=== PATIENT | male | born 1970 | race Caucasian/White ===

== ENCOUNTER 2017-11-15 08:57 | Emergency (ER) | payer SELFPAY ==
[2017-11-15] VITALS (58 sets, daily range): BP systolic 165–247; BP diastolic 99–207; PULSE 74–110; RESP 0–28; TEMP 36.6–37; O2SAT 95–100
--- NOTE | 2017-11-15 09:37 | DI.RPTCT_ITS ---
SYMPTOM/DIAGNOSIS: SEVERE HEADACHE AND SEVERE HTN (200's) NONCONTRAST HEAD CT: There are no prior comparison exams. No intracranial hemorrhage, mass or infarct is seen. There is no significant atrophy. The ventricles are normal in size. There is no evidence of skull fracture or sinus opacification. IMPRESSION: Negative head CT.
--- NOTE | 2017-11-15 09:37 | DI.RPTCT_ITS ---
SYMPTOM/DIAGNOSIS: SEVERE HEADACHE AND SEVERE HTN (200's) CT ANGIOGRAPHY HEAD AND NECK: CT angiography was performed with multi slice acquisition and multi planar and 3D reconstruction. There is mild plaque in both common carotid bulbs without significant stenosis. The vessels are otherwise normal in appearance. There is no evidence of dissection. A focal area of tortuosity is seen in the distal right internal carotid artery. [place] of [place] vasculature appears normal. There are mild degenerative disc changes at C3-4 and C6-7. The orbits are unremarkable. The nasal septum is deviated toward the right. There is no significant sinus disease. The thyroid, submandibular and parotid glands are unremarkable. IMPRESSION: Mild plaque in both common carotid arteries. No significant stenosis.
--- NOTE | 2017-11-15 09:50 | DI.RPTCT_ITS ---
SYMPTOM/DIAGNOSIS: FREQUENT VOMITING X 4 DAYS. EPIGASTRIC ABD PAIN ON PALPATION. CT ABDOMEN AND PELVIS: There are no prior comparison exams. Images were performed from the lung bases through the ischial tuberosities after IV and oral contrast. The exam was performed following the CTA of the head and neck, and contrast is seen within the renal collecting systems and bladder. The prostate appears mildly enlarged. There is marked thickening of the bladder wall which is greatest inferiorly and posteriorly. Urinary bladder appears distended. There is no evidence of hydronephrosis. No renal calculi are seen. The heart size is normal. The lung bases are clear. Liver, gallbladder, spleen, pancreas and adrenals appear normal. There is a small amount of contrast in the stomach. The stomach is not well evaluated. There is no bowel dilatation. The appendix appears normal. Stool is seen throughout the colon. The aorta is normal in diameter. No bony abnormalities are seen. IMPRESSION: Marked thickening of the wall of the bladder at the base, adjacent to the prostate. The prostate shows calcification and is mildly enlarged.
[2017-11-15] MEDS: Acetaminophen 500 MG TAB 1000 MG PO (09:52)
[2017-11-15] MEDS: Normal Saline 1,000 ML 1000 ML IV ×3 (09:55→11:54)
[2017-11-15] MEDS: Dexamethasone 10 MG/ML VIAL IVP (10:00)
[2017-11-15] MEDS: diphenhydrAMINE 50 MG/ML VIAL 25 MG IVP (10:01)
[2017-11-15] MEDS: Metoclopramide 10 MG/2 ML VIAL IVP (10:03)
[2017-11-15 10:17] LABS: Abs Immature Grans 0.06 k/cumm (0.0-0.09); Absolute Lymphocyte Count 3.19 k/cumm (1.2-3.4); Basophils % 0.2; HCT 53.4 % (40.0-50.0); Immature Grans % 0.3; Lymphocytes % 17.5; Mean Corpuscular Hemoglobin 31.1 pg (27.0-33.0); Mean Corpuscular Volume 86.4 fL (80-95); Mean Platelet Volume 10.9 fL (8.0-11.0); Monocytes % 6.7; Neutrophils % 75.3; Platelet Count 172 x1000/uL (130-400); RBC 6.18 m/cumm (4.50-6.00); RBC Distribution Width 14.4 % (11.8-14.1); White Blood Cell Count 18.23 k/cumm (4.4-10.8)
[2017-11-15 10:25] LABS: Absolute Basophil Count 0.04 k/cumm (0.0-0.2); Absolute Monocyte Count 1.22 k/cumm (0.11-0.7); Absolute Neutrophil Count 13.73 k/cumm (1.2-6.7); Lipase 105 U/L (73-393)
[2017-11-15 10:27] LABS: HGB 19.2 g/dL (13.5-17.5)
[2017-11-15 10:33] LABS: ALT 21 U/L (12-78); AST 17 U/L (15-37); Albumin 4.8 g/dL (3.4-5.0); Alkaline Phosphatase 112 U/L (46-116); Anion Gap 11.9 mmol/L (3-11); BUN 51 mg/dL (7-18); Bilirubin, Total 1.2 mg/dL (0.2-1.0); CO2 27.1 mmol/L (21.0-32.0); CREATININE 2.39 mg/dL (0.70-1.30); Calcium 10.3 mg/dL (8.5-10.1); Chloride 92 mmol/L (98-107); Glucose 152 mg/dL (70-100); Potassium 3.5 mmol/L (3.5-5.1); Sodium 131 mmol/L (136-145); Total Protein 9.4 g/dL (6.4-8.2)
[2017-11-15 10:37] LABS: ETHANOL BLOOD < 3.0 mg/dL (<3)
[2017-11-15 10:38] LABS: Troponin I < 0.02 ng/mL (0.00-0.06)
[2017-11-15] MEDS: Labetalol 100 MG/20 ML VIAL 10 MG IVP ×2 (10:47→12:17)
[2017-11-15 10:58] LABS: C-Reactive Protein 0.05 mg/dL (0.0-0.3)
[2017-11-15 11:27] LABS: ESR 2 MM/HR (0-15)
[2017-11-15] MEDS: Omnipaque 350 MG/ML 100 ML BTL IJ (11:40)
[2017-11-15] MEDS: Omnipaque 350 MG/ML 50 ML BTL IJ (11:41)
[2017-11-15] MEDS: Breeza Beverage 473 ML BTL PO ×2 (11:41→11:42)
[2017-11-15] MEDS: Lidocaine 4% Cream 5 GM TUBE 1 GM TP (12:16)
[2017-11-15] MEDS: Ketorolac 30 MG/ML VIAL IM (12:18)
[2017-11-15] MEDS: hydrALAZINE 20 MG/ML VIAL 10 MG IVP (12:21)
--- NOTE | 2017-11-15 13:07 | ED.GENADUL ---
Disposition Clinical Impression: Headache, Hypertension, Medical non-compliance Disposition: HOME Condition: Good Instructions: Hypertension (ED), General Headache (ED) Additional Instructions: Please follow-up with your new primary care provider and your scheduled appointment on November 22 at 9:45 AM. This is with . Please take the medication as directed. Please drink 8-10 cups of water per day. Please take the blood pressure medication as directed. If you notice any significant lightheadedness or dizziness please hold on the medication. If you notice any worsening of your symptoms, or any new symptoms such as vomiting, diarrhea, fever, chills, shortness of breath, chest pain, numbness, weakness, or fainting , please return immediately to the emergency department for reevaluation. Please follow up with your primary care provider as soon as possible for reassessment and reevaluation. As always, it was a pleasure participating in your medical care today. Prescriptions: Labetalol [Normodyne] 100 mg PO BID #60 tab Ondansetron [Zofran] 4 mg PO Q8H #12 tab Referrals: Julio Cesar Saleh [Primary Care Provider] - Medical Decision Making - Lab Data Laboratory Tests 11/15/17 11/15/17 11/15/17 09:55 09:55 09:55 WBC 18.23 H RBC 6.18 H Hgb 19.2 H* Hct 53.4 H MCV 86.4 MCH 31.1 MCHC 36.0 RDW 14.4 H Plt Count 172 MPV 10.9 Immature Gran % 0.3 Neutrophils % 75.3 Lymphocytes % 17.5 Monocytes % 6.7 Eosinophils % 0.0 Basophils % 0.2 Absolute Neutrophils 13.73 H Absolute Lymphocytes 3.19 Absolute Monocytes 1.22 H Absolute Eosinophils 0.00 Absolute Basophils 0.04 ESR Sodium 131 L Potassium 3.5 Chloride 92 L Carbon Dioxide 27.1 Anion Gap 11.9 H BUN 51 H Creatinine 2.39 H Estimated GFR/1.73 m2 29.30 Glucose 152 H Calcium 10.3 H Total Bilirubin 1.2 H AST 17 ALT 21 Alkaline Phosphatase 112 Troponin I < 0.02 C-Reactive Protein Total Protein 9.4 H Albumin 4.8 Lipase 105 Ethyl Alcohol < 3.0 11/15/17 11/15/17 09:55 09:55 WBC RBC Hgb Hct MCV MCH MCHC RDW Plt Count MPV Immature Gran % Neutrophils % Lymphocytes % Monocytes % Eosinophils % Basophils % Absolute Neutrophils Absolute Lymphocytes Absolute Monocytes Absolute Eosinophils Absolute Basophils ESR 2 Sodium Potassium Chloride Carbon Dioxide Anion Gap BUN Creatinine Estimated GFR/1.73 m2 Glucose Calcium Total Bilirubin AST ALT Alkaline Phosphatase Troponin I C-Reactive Protein 0.05 Total Protein Albumin Lipase Ethyl Alcohol - Medical Decision Making This is a 46-year-old male medical history of hypertension that is not medically managed compared to noncompliance who presents today for evaluation of head pain. Patient states that the headache is severe, however similar in nature to his previous headaches. He denies any family history of polycystic kidney disease, Marfan syndrome, Hermelinda-Danlos syndrome, or intracranial aneurysms. Patient has no fever or chills, he shows no signs of meningitis on clinical exam. Because of the patient's notable hypertension, we will get a CT head and CT angiogram to evaluate for any acute intracranial process. We will give a migraine cocktail and reevaluate. We will attempt to control his blood pressure. The patient's nausea and vomiting has seemed to resolve this morning, however he does appear notably dehydrated. Without urinating for the last day and a half I am concerned for significant dehydration with a potential acute kidney injury. We will get a CT scan of the abdomen, rehydrate, reevaluate EKG 9: 45 Rate 100, intervals MO 116, QTc 480, QRS 96, sinus rhythm with a shortened MO. EKG demonstrates less than 1 mm elevation in V1 and V2 with normal J-point no tumors stoning. No significant depression in the contralateral leads. No significant T-wave inversions. No Q waves are present. Patient CT angiogram and CT head, as well as a CT abdomen shows no acute process. The radiologist, Dr. Trevino did call me back and states that there is no acute process, or evidence of aneurysm in the head or neck. CT the abdomen does show some marked thickening of the bladder but no other acute abnormality, obstruction, or signs of ileus. Patient's laboratory workup demonstrates notable hemoconcentration with an elevated hemoglobin and elevated white count as well as an elevated creatinine concerning for acute kidney injury. I feel his white count and hemoglobin are secondary to notable dehydration. We will rehydrate the patient with 3 L, then reassess laboratory workup. The patient has not vomited anymore here in the ED, and he has been able to tolerate 3 glasses orally without any difficulty. The patient was given labetalol, and hydralazine and has had improvement of his blood pressure, migraine cocktail including Toradol and Compazine is also brought his pain down from a 10 out of 10 to 6 out of 10. I also did perform a sphenopalatine block by placing 4% lidocaine in the left nare. We will continue to rehydrate, and reevaluate. Troponin is normal, EKG shows no evidence of a STEMI. He currently has no chest pain or shortness of breath. 2 PM Patient has been rehydrated, repeat laboratory workup demonstrates an improved hemoglobin level are markedly dropping WBC count, and a notably improved creatinine. I feel this well reflex is hemoconcentration from dehydration. He has had 2 urinary movements here which is the first time in 3 days. States that he is feeling much better at this time. The patient's headache is notably improved. Blood pressure is improved. With improvement of his symptoms, no signs of meningitis on exam, I do feel that he can be discharged home however he does require close follow-up. Since the patient has a small amount of residual pain secondary to the headache still present, I did give the patient the option of continued observation versus discharge and the patient is made it very clear that he would like to be discharged home. We have involved case management to facilitate follow-up for the patient with a new primary care provider. We have scheduled an appointment for him and given him the card for this appointment in the next 48 hours. I had a long discussion with him regarding red flags which to return the patient understands. I feel his symptoms most likely secondary to a combination of hypertension as well as his chronic migraines. I have extensively reviewed the treatment plan and discharge instructions with the patient and their family. I have addressed all patient concerns at this time. The patient and family was made aware of what symptoms to monitor for that would warrant a return to the emergency department. Discussed the plan with the patient and family, they demonstrate verbal understanding and agreement with our assessment and plan at this time. History of Present Illness - General Chief complaint: Headache Stated complaint: UNKNOWN Time Seen by Provider: 11/15/17 09:36 - History of Present Illness Initial comments: This is a 46-year-old male with a past medical history of severe hypertension who does not take any of his medications, chronic alcohol use, concussion within the past year, and chronic headaches. He presents today for evaluation of headache. He states that for the last 3 days he has had vomiting multiple times throughout the day, and has had generalized nausea but no significant abdominal pain. He has not been able to keep anything down. He is not Peed over the last 2-3 days. He is also developed a notable headache. He states that the headache is been going on for 3 days. It was gradual in onset, it was not thunderclap in onset. The pain is it is located in the posterior superior aspect. No ice pick sensation behind his eyes. He does describe the headache as severe, it is not the worst headache of his life but it is very similar to previous headaches that he has had. His headache is made worse by light and noise. He denies any fevers, chills, or severe lower neck pain. Patient denies any recent trauma or falls. Patient denies any chest pain, arm pain, neck pain, shortness of breath. Patient family history is positive for a brother who within the past year for a heart attack. Patient is noncompliant with any of his medications and has had a history of notable hypertension for which she does not take any current medications for. He has not seen a primary care provider in quite some time. Patient denies any other sick contacts at this time. Patient denies any IV or illicit drug use. Patient does admit to recent surgery on his left hand for an injury within the past few months, denies any other significant surgeries. - Related Data Labetalol [Normodyne] 100 mg PO BID #60 tab 11/15/17 Ondansetron [Zofran] 4 mg PO Q8H #12 tab 11/15/17 Allergies Allergy/AdvReac Type Severity Reaction Status Date / Time Penicillins Allergy Severe Unverified 11/15/17 09:13 seasonal Allergy Uncoded 11/15/17 09:13 Review of Systems Other: 10 point review of systems was performed, pertinent positives and negatives are noted in the history of present illness. General Exam - Other Other exam information: 1.Const: Well-nourished, Well-developed, appearing stated age 2.Eyes: PERRL, no conjunctival injection, and symmetrical lids. 3.ENT: Atraumatic external nose and ears. Moist MM. Neck: Symmetric, trachea midline, No thyromegaly. Patient demonstrates good movement of cervical neck. There is no nuchal rigidity, no nuchal tenderness. Patient is able to flex the neck without any difficulty or significant pain. Negative Kernig's and Brudzinski sign. 4.CVS: +S1/S2, No murmurs or gallops. Peripheral pulses 2+ and equal in all extremities. Brisk capillary refill in all extremities. 5.RESP: Unlabored respiratory effort. Clear to auscultation bilaterally. No wheezes rales or rhonchi 6.GI: Soft, Nontender/Nondistended, No hepatosplenomegaly. No guarding or rebound. 7.MSK: Normocephalic/Atraumatic, Extremities w/o deformity or ttp No cyanosis or clubbing, Normal movement of all extremities 8.Skin: Warm, Dry. No rashes or lesions. 9.Neuro: casualty claim adjuster II-XII grossly intact. Sensation grossly intact, no focal neurologic deficits. All 6 cardinal planes of vision or fully intact. No evidence of horizontal or vertical nystagmus. The patient demonstrated a normal [id number], good dexterity. There was no evidence of dysdiadochokinesia. Patient was able to ambulate without difficulty. There was no wide-based gait. Romberg, and [id number] are both normal on testing. Sensation was intact bilaterally as well as muscle strength bilaterally for all extremities. Patient was able to verbalize butter cup with no slurring, or miss pronunciation. 10.Psych: (AAO) x3. Appropriate mood and affect Course Vital Signs - 24 hr 11/15/17 11/15/17 11/15/17 09:08 09:22 09:23 Temperature 36.6 C Pulse 102 H 97 H Respiratory 16 14 16 Rate Blood Pressure 234/160 232/159 Pulse Oximetry 97 100 98 11/15/17 11/15/17 11/15/17 09:30 09:31 09:40 Temperature Pulse 103 H Respiratory 15 14 14 Rate Blood Pressure 247/207 Pulse Oximetry 100 98 99 11/15/17 11/15/17 11/15/17 09:47 09:50 10:00 Temperature Pulse 98 H Respiratory 20 14 16 Rate Blood Pressure 231/144 Pulse Oximetry 99 99 99 11/15/17 11/15/17 11/15/17 10:01 10:10 10:16 Temperature Pulse 99 H 93 H Respiratory 16 22 10 L Rate Blood Pressure 235/144 227/151 Pulse Oximetry 99 99 20/18 20/18 /20/18 10:20 10:30 10:31 Temperature Pulse 92 H Respiratory 0 L 17 18 Rate Blood Pressure 233/142 Pulse Oximetry 97 97 97 20/18 20/18 20/18 10:40 10:46 10:47 Temperature Pulse 92 H 96 H Respiratory 13 17 Rate Blood Pressure 242/157 233/142 Pulse Oximetry 96 20/18 20/18 2018 10:50 11:00 11:01 Temperature Pulse 83 Respiratory 13 20 19 Rate Blood Pressure 215/138 Pulse Oximetry 99 96 97 11/15/18 20/18 18 11:37 11:38 11:40 Temperature Pulse 85 Respiratory 22 Rate Blood Pressure 235/149 Pulse Oximetry 98 96 95 20/18 20/18 20/18 11:46 11:50 12:00 Temperature Pulse 88 Respiratory 19 15 26 H Rate Blood Pressure 236/152 Pulse Oximetry 96 96 97 11/15/18 20/18 2018 12:01 12:10 12:17 Temperature Pulse 90 90 Respiratory 19 12 24 Rate Blood Pressure 236/133 208/127 Pulse Oximetry 97 96 99 11/15/18 20/18 20/18 12:20 12:30 12:33 Temperature Pulse 79 Respiratory 16 12 18 Rate Blood Pressure 185/125 Pulse Oximetry 99 98 98 18 20/18 2018 12:40 12:46 12:50 Temperature Pulse 83 Respiratory 16 17 15 Rate Blood Pressure 183/118 Pulse Oximetry 98 98 99
--- NOTE | 2017-11-15 13:34 | PDOC.ERCMPRO ---
Care Management Progress Note 11/15-Dr. Stein requested assistance with a PCP (Julio Cesar Saleh corporate communications associate) f/u in 1-2 weeks for severe hypertension. Patient does not have a PCP. Patient states last provider was in [place] and hasn't seen for years. Called [facility] and spoke with Suyapa. Suyapa scheduled Michael for a f/u on Wednesday, November [address] Stein aware of the above to be placed on d/c paperwork and patient given an appt card.
[2017-11-15 13:50] LABS: Abs Immature Grans 0.05 k/cumm (0.0-0.09); Absolute Lymphocyte Count 2.46 k/cumm (1.2-3.4); Basophils % 0.1; HCT 46.9 % (40.0-50.0); HGB 16.6 g/dL (13.5-17.5); Immature Grans % 0.3; Lymphocytes % 14.5; Mean Corp. HGB Concentration 35.4 g/dL (32.0-36.0); Mean Corpuscular Volume 87.5 fL (80-95); Mean Platelet Volume 10.5 fL (8.0-11.0); Monocytes % 2.4; Neutrophils % 82.7; Platelet Count 139 x1000/uL (130-400); RBC 5.36 m/cumm (4.50-6.00); RBC Distribution Width 14.2 % (11.8-14.1); White Blood Cell Count 16.99 k/cumm (4.4-10.8)
[2017-11-15 13:52] LABS: Absolute Basophil Count 0.02 k/cumm (0.0-0.2); Absolute Monocyte Count 0.41 k/cumm (0.11-0.7); Absolute Neutrophil Count 14.05 k/cumm (1.2-6.7)
[2017-11-15] MEDS: Normal Saline 50 ML 200 ML (13:57)
[2017-11-15] MEDS: Prochlorperazine 10 MG/2 ML VIAL IVP (13:57)
[2017-11-15 14:08] LABS: ALT 17 U/L (12-78); AST 17 U/L (15-37); Albumin 3.7 g/dL (3.4-5.0); Alkaline Phosphatase 88 U/L (46-116); Anion Gap 8.5 mmol/L (3-11); BUN 42 mg/dL (7-18); CO2 25.5 mmol/L (21.0-32.0); CREATININE 1.69 mg/dL (0.70-1.30); Calcium 8.2 mg/dL (8.5-10.1); Chloride 100 mmol/L (98-107); Estimated GFR 43.71 (mL/min/1.73m2); Glucose 142 mg/dL (70-100); Potassium 3.4 mmol/L (3.5-5.1); Sodium 134 mmol/L (136-145); Total Protein 7.2 g/dL (6.4-8.2)
[2017-11-15] MEDS: MAGNESIUM SULFATE 1 GM/100 ML BAG IVPB (14:13)
[2017-11-15] MEDS: Labetalol 100 MG TAB PO (14:14)
== END 2017-11-15 15:25 | disposition home or self-care (01) ==
PROVIDERS: Emergency Provider Student in an Organized Health Care Education/Training Program; PCP Specialist/Technologist Athletic Trainer
DX: R51 Headache (principal); I10 Essential (primary) hypertension; Z91.19 Patient's noncompliance with other medical treatment and regimen; R11.2 Nausea with vomiting, unspecified; E86.0 Dehydration
CPT/HCPCS: 36415; 70496; 70498; 80053; 83690; 85652; 93005; 96361; 96365; 96372; 96375; 96376; 99285; 70450; 74176; 80320; 84484; 85025; 86140; 93010; J0360; J0780; J1100; J1200; J1885; J2765; J3475; J3490; Q9967

== ENCOUNTER 2018-05-04 10:39 | Emergency (ER) | payer SELFPAY ==
[2018-05-04 10:55] VITALS: BP 227/142; PULSE 78; RESP 20; TEMP 36.8; O2SAT 99
--- NOTE | 2018-05-04 11:08 | DI.CT_ITS ---
SYMPTOM/DIAGNOSIS: CENTRAL PLEURITIC CHEST PAIN, SOB, ? PE PE CHEST CT: CT angiography was performed with multi slice acquisition and multi planar and 3D reconstruction. There are no prior comparison exams. Pulmonary arteries are well opacified with IV contrast. No pulmonary emboli are seen. There is mild dilatation of the ascending aorta to 3.9 cm. There is no evidence of dissection. The heart size is normal. The lungs appear clear. No infiltrate or effusion is seen. The visualized portions of the upper abdomen are unremarkable. There is no evidence of pneumothorax or rib fracture. IMPRESSION: No evidence of pulmonary emboli or other acute abnormality.
[2018-05-04] MEDS: Ketorolac 30 MG/ML VIAL 15 MG IVP (11:16)
[2018-05-04] MEDS: Acetaminophen 500 MG TAB 1000 MG PO (11:16)
[2018-05-04] MEDS: Albuterol/Ipratropium 3 ML UPD VIAL UPD (11:17)
[2018-05-04] MEDS: Normal Saline 1,000 ML 1000 ML IV (11:17)
[2018-05-04] MEDS: Labetalol 100 MG TAB PO (11:25)
[2018-05-04 11:26] VITALS: BP 214/136; PULSE 69
[2018-05-04 11:33] LABS: Abs Immature Grans 0.01 k/cumm (0.0-0.09); Absolute Basophil Count 0.03 k/cumm (0.0-0.2); Absolute Eosinophil Count 0.27 k/cumm (0.0-0.7); Absolute Lymphocyte Count 2.09 k/cumm (1.2-3.4); Absolute Monocyte Count 0.82 k/cumm (0.11-0.7); Basophils % 0.3; Eosinophils % 3.1; HCT 44.4 % (40.0-50.0); HGB 15.3 g/dL (13.5-17.5); Immature Grans % 0.1; Mean Corp. HGB Concentration 34.5 g/dL (32.0-36.0); Mean Corpuscular Volume 90.1 fL (80-95); Mean Platelet Volume 11.1 fL (8.0-11.0); Monocytes % 9.4; Neutrophils % 63.1; Platelet Count 174 x1000/uL (130-400); RBC 4.93 m/cumm (4.50-6.00); RBC Distribution Width 13.3 % (11.8-14.1); White Blood Cell Count 8.72 k/cumm (4.4-10.8)
[2018-05-04 11:42] LABS: ALT 12 U/L (12-78); AST 13 U/L (15-37); Albumin 3.6 g/dL (3.4-5.0); Alkaline Phosphatase 99 U/L (46-116); Anion Gap 6.4 mmol/L (3-11); BUN 14 mg/dL (7-18); Bilirubin, Total 0.8 mg/dL (0.2-1.0); CO2 29.6 mmol/L (21.0-32.0); CREATININE 1.21 mg/dL (0.70-1.30); Calcium 9.1 mg/dL (8.5-10.1); Chloride 102 mmol/L (98-107); Glucose 106 mg/dL (70-100); Potassium 3.9 mmol/L (3.5-5.1); Sodium 138 mmol/L (136-145); Total Protein 7.7 g/dL (6.4-8.2)
[2018-05-04 11:43] LABS: Troponin I < 0.02 ng/mL (0.00-0.06)
[2018-05-04] MEDS: Omnipaque 350 MG/ML 100 ML BTL IJ (11:54)
--- NOTE | 2018-05-04 12:16 | W.ED.GENAD ---
Discharge Plan Disposition Patient Disposition: HOME Condition: Good Discharge Details Chief Complaint: Chest Pain Clinical Impression: Chest pain Primary Care Provider: Anuel Dawn ED Provider: Toy Stein Home Meds and New Rx's Prescriptions: New labetalol 100 mg tablet 100 mg PO BID Qty: 60 RF: 0 No Action labetalol 100 MG tablet 100 mg PO BID Qty: 60 RF: 0 ondansetron HCl 4 MG tablet 4 mg PO Q8H Qty: 12 RF: 0 Discharge Instructions Instructions: Chest Pain (ED) Additional Instructions: Please perform the exercise stress test when you are contacted for the appointment. Please continue to take Tylenol or Motrin for the pain. If you notice any worsening of your symptoms, or any new symptoms such as vomiting, diarrhea, fever, chills, shortness of breath, chest pain, numbness, weakness, or fainting , please return immediately to the emergency department for reevaluation. Please follow up with your primary care provider as soon as possible for reassessment and reevaluation. As always, it was a pleasure participating in your medical care today. Referrals: Anuel Dawn, LAUNDRY PRICING CLERK [Primary Care Provider] - Discharge Data Discharge Date/Time-TO BE ENTERED AT DEPARTURE: 05/04/18 16:12 Medical Decision Making This is a pleasant 47-year-old male with a past medical history of hypertension, medication noncompliance, and smoking who presents today for evaluation of chest pain with a mild pleuritic component, which she describes as chest tightness. It started 4 days ago when he woke up. He has no associated cough. Does not seem to be overly exertional. Physical exam demonstrates no concerning pulmonary abnormalities. No radial pulse discrepancy, or other abnormalities. Patient was given his home dose of labetalol for his blood pressure. Differential included PE versus dissection versus cardiac disease versus musculoskeletal strain. Patient was initially given 3 nitroglycerin and had no change in his symptoms whatsoever. He was also given a breathing treatment which also did not improve anything. Subsequently he was given NSAIDs and had a notable improvement of his symptoms. CT angiogram was ordered and results demonstrate no evidence of dissection, significant aneurysm, pulmonary embolism, or pneumonia or pneumothorax. EKG shows no acute process or significant abnormality especially in comparison with prior EKG. Initial troponin was negative. Serial troponin and EKGs were drawn 3 hours later which showed no significant abnormalities or problems. No evidence of STEMI after NSAID therapy the patient had complete resolution of his symptoms. I did discuss with the patient observation for serial troponins and stress testing the patient made it very clear that he would not be staying overnight in the hospital. He is very pleasant about this, but he wanted to go home and be discharged as he is feeling much better. Because of his risk factors of family history, hypertension tobacco use I do feel that he would benefit from an outpatient exercise stress test although I do feel that at this time the patient's current symptoms are clinically inconsistent with acute ACS/STEMI. Heart score is [address] him in the low risk category. We will refill his prescription for home antihypertensive agents, and we have scheduled a follow-up appointment for his stress test. I have extensively reviewed the treatment plan and discharge instructions with the patient and their family. I have addressed all patient concerns at this time. The patient and family was made aware of what symptoms to monitor for that would warrant a return to the emergency department. Discussed the plan with the patient and family, they demonstrate verbal understanding and agreement with our assessment and plan at this time. EKG 11: 04 Rate 75, intervals normal, slight peaking of T waves in V3, through V5, however previous EKG from 11/15/17 shows similar peaking in V2 and V3 but not V4 V5. Less than 1 mm elevation in V2, which is notably present in prior EKG. It actually looks slightly less on this current EKG. No evidence of Q waves, Wellons, or STEMI. No evidence of D Saavedra T waves. EKG 15: 52 Rate 61, intervals normal, sinus rhythm, no ST significant elevations or depressions, less than 1 mm of J-point elevation in V3 V4 V5. No changes compared to prior EKG. No T wave inversions. No Q waves. Unchanged EKG. PE CHEST CT: CT angiography was performed with multi slice acquisition and multi planar and 3D reconstruction. There are no prior comparison exams. Pulmonary arteries are well opacified with IV contrast. No pulmonary emboli are seen. There is mild dilatation of the ascending aorta to 3.9 cm. There is no evidence of dissection. The heart size is normal. The lungs appear clear. No infiltrate or effusion is seen. The visualized portions of the upper abdomen are unremarkable. There is no evidence of pneumothorax or rib fracture. IMPRESSION: No evidence of pulmonary emboli or other acute abnormality. HPI General Date/Time Provider Initiated Documentation: 05/04/18 11:00. HPI Narrative: This is a pleasant 47-year-old male with a past medical history of horrible noncompliance, hypertension, who presents today for evaluation of chest pain. The patient states that for the last 4 days he has had mild chest pain which she describes as mild chest tightness, worse with deep breathing. Does not seem to be notably worsened with exertion. Does note some pain in his left arm, however he is unsure if this is from his chest pain or from his normal activities. He denies any cough. Denies PE risk factors such as recent long car rides, immobilization, recent surgery, prior history of DVT or PE, family history of PE or DVT, morbid obesity, exogenous estrogen and smoking, hemoptysis, history of cancer. Family history is positive for coronary artery disease. Of note the patient is chronically severely hypertensive and refuses to take any of his home medications. Patient denies any tearing sensation in his chest. He states that the pain has been relatively consistent for the last 4 days and has not notably worsened. He denies any recent trauma. Symptoms are not made worse by sitting upright or lying down flat. He denies any other complaints or modifying factors. He denies any IV or illicit drug use. He does smoke regularly. Related Data Home Medications Medication Instructions Recorded Confirmed labetalol 100 mg PO BID #60 tab 11/15/17 ondansetron HCl 4 mg PO Q8H #12 tab 11/15/17 labetalol 100 mg PO BID #60 tab 05/04/18 Previous Rx's Medication Instructions Recorded labetalol 100 mg PO BID #60 tab 11/15/17 ondansetron HCl 4 mg PO Q8H #12 tab 11/15/17 labetalol 100 mg PO BID #60 tab 05/04/18 Allergies Allergy/AdvReac Type Severity Reaction Status Date / Time Penicillins Allergy Severe Unverified 11/15/17 09:13 seasonal Allergy Uncoded 11/15/17 09:13 General Stated Complaint: Chest Pain JUAN F: 2 Review of Systems Review of Systems All systems reviewed & are unremarkable except as noted in HPI and below PFSH Social History Smoking/Tobacco Use Status: Current every day Exam Narrative Exam Narrative: 1.Const: Well-nourished, Well-developed, appearing stated age 2.Eyes: PERRL, no conjunctival injection, and symmetrical lids. 3.ENT: Atraumatic external nose and ears. Moist MM. Neck: Symmetric, trachea midline, No thyromegaly. 4.CVS: +S1/S2, No murmurs or gallops. Peripheral pulses 2+ and equal in all extremities. Brisk capillary refill in all extremities. 5.RESP: Unlabored respiratory effort. Clear to auscultation bilaterally. No wheezes rales or rhonchi 6.GI: Soft, Nontender/Nondistended, No hepatosplenomegaly. No guarding or rebound. 7.MSK: Normocephalic/Atraumatic, Extremities w/o deformity or ttp No cyanosis or clubbing, Normal movement of all extremities 8.Skin: Warm, Dry. No rashes or lesions. 9.Neuro: drum maker II-XII grossly intact. Sensation grossly intact, no focal neurologic deficits. 10.Psych: (AAO) x3. Appropriate mood and affect Course Vital Signs Temperature 36.8 C 05/04/18 10:55 Pulse 78 05/04/18 10:55 Respiratory Rate 20 05/04/18 10:55 Blood Pressure 227/142 H 05/04/18 10:55 Pulse Oximetry 99 05/04/18 10:55 Temperature 36.8 C 05/04/18 10:55 Temperature Source Temporal Artery Scan 05/04/18 10:55 Pulse 69 05/04/18 11:26 Respiratory Rate 20 05/04/18 10:55 Respiratory Effort Non-Labored 05/04/18 10:55 Blood Pressure 214/136 H 05/04/18 11:26 Blood Pressure Position Sitting 05/04/18 10:55 Pulse Oximetry 99 05/04/18 10:55 Pain Level 9 05/04/18 10:55 Lab/Test Results Lab/Test Results: Laboratory Tests Range/Units 05/04/18 05/04/18 11:15 11:15 WBC (4.4-10.8) k/cumm 8.72 RBC (4.50-6.00) m/cumm 4.93 Hgb (13.5-17.5) g/dL 15.3 Hct (40.0-50.0) % 44.4 MCV (80-95) fL 90.1 MCH (27.0-33.0) pg 31.0 MCHC (32.0-36.0) g/dL 34.5 RDW (11.8-14.1) % 13.3 Plt Count (130-400) x1000/uL 174 MPV (8.0-11.0) fL 11.1 H Immature Gran % 0.1 Neutrophils % 63.1 Lymphocytes % 24.0 Monocytes % 9.4 Eosinophils % 3.1 Basophils % 0.3 Absolute Neutrophils (1.2-6.7) k/cumm 5.50 Absolute Lymphocytes (1.2-3.4) k/cumm 2.09 Absolute Monocytes (0.11-0.7) k/cumm 0.82 H Absolute Eosinophils (0.0-0.7) k/cumm 0.27 Absolute Basophils (0.0-0.2) k/cumm 0.03 Sodium (136-145) mmol/L 138 Potassium (3.5-5.1) mmol/L 3.9 Chloride (98-107) mmol/L 102 Carbon Dioxide (21.0-32.0) mmol/L 29.6 Anion Gap (3-11) mmol/L 6.4 BUN (7-18) mg/dL 14 Creatinine (0.70-1.30) mg/dL 1.21 Estimated GFR/1.73 m2 (mL/min/1.73m2) >= 60.00 Glucose (70-100) mg/dL 106 H Calcium (8.5-10.1) mg/dL 9.1 Total Bilirubin (0.2-1.0) mg/dL 0.8 AST (15-37) U/L 13 L ALT (12-78) U/L 12 Alkaline Phosphatase (46-116) U/L 99 Troponin I (0.00-0.06) ng/mL < 0.02 Total Protein (6.4-8.2) g/dL 7.7 Albumin (3.4-5.0) g/dL 3.6
[2018-05-04 12:35] VITALS: BP 174/127; PULSE 76
--- NOTE | 2018-05-04 14:15 | PDOC.ERCMPRO ---
Care Management Progress Note 05/04-Luís does not have a PCP. Dr. Stein will be discharging him home with an outpatient stress test and close f/u with PCP. Dr. Flores environmental engineer. Called [facility] and spoke with Nathanael. Nathanael scheduled Michael for Wednesday, 05/09 at 0845 with Anuel Dawn. Michael gave me updated information: [address] [place] [id number] Called [facility] (as patient has already been registered) and spoke with Alyssa. Alyssa will update chart. Dr Stein aware of the above appointment. Patient given an appt card.
--- NOTE | 2018-05-04 14:23 | CMPROGNOTE_ITS ---
Care Management Progress Note 05/04-Luís does not have a PCP. Dr. Stein will be discharging him home with an outpatient stress test and close f/u with PCP. Dr. Floers blasting contract man. Called [facility] and spoke with Nathanael. Nathanael scheduled Michael for Wednesday, 05/09 at 0845 with Anuel Dawn. Michael gave me updated information: [address] [place] [id number] Called [facility] (as patient has already been registered) and spoke with Alyssa. Alyssa will update chart. Dr Stein aware of the above appointment. Patient given an appt card.
[2018-05-04 15:11] LABS: Troponin I < 0.02 ng/mL (0.00-0.06)
[2018-05-04 15:15] VITALS: BP 203/115; PULSE 81; RESP 18; TEMP 36.8; O2SAT 99
[2018-05-04 15:54] VITALS: BP 221/133; PULSE 66; O2SAT 99
== END 2018-05-04 16:12 | disposition home or self-care (01) ==
PROVIDERS: Emergency Provider Student in an Organized Health Care Education/Training Program; PCP Nurse Practitioner Family
DX: R07.9 Chest pain, unspecified (principal); F17.201 Nicotine dependence, unspecified, in remission; I10 Essential (primary) hypertension
CPT/HCPCS: 36415; 71275; 80053; 93005; 94640; 96361; 96374; 99285; 84484; 85025; 93010; J1885; J3490; J7620

== ENCOUNTER 2018-05-07 01:14 | Inpatient (IN) | payer SELFPAY ==
[2018-05-07] VITALS (125 sets, daily range): BP systolic 62–129; BP diastolic 13–102; PULSE 67–119; RESP 8–40; TEMP 36.1–37.2; O2SAT 86–100
--- NOTE | 2018-05-07 01:26 | W.ED.GENAD ---
Discharge Plan Disposition Patient Disposition: [facility] INPATIENT Condition: Poor Discharge Details Chief Complaint: Seizure Clinical Impression: Observed seizure-like activity, Hypotension Reason For Visit: MARIANA Primary Care Provider: Anuel Dawn ED Provider: Romain He Faywood Meds and New Rx's Prescriptions: No Action labetalol 100 MG tablet 100 mg PO BID Qty: 60 RF: 0 ondansetron HCl 4 MG tablet 4 mg PO Q8H Qty: 12 RF: 0 Medical Decision Making Patient presenting to ED status post seizure. He has never had seizure previously. He is quite pale, cool and clammy. He is altered and not a good historian. Currently denying headache although daughter reports he is been complaining of headaches daily. He was seen here on the sixth for chest pain with a negative workup. Still apparently complaining of chest pain but better than previous. His fingerstick per EMS was okay. He has received some fluids and Zofran. Patient is awake and alert but is postictal. He appears to be nonfocal. He does not appear to have any neck pain or tenderness. Will get a head and cervical spine CT. Previously had CTA of the head in October last year which was normal except for some carotid plaque. Will obtain laboratory studies. We will give her a liter of LR. Will obtain EKG because of the previous complaint of chest pain. CTA of chest on the sixth was normal. Patient's EKG is sinus rhythm at a rate of 73. There is evidence of LVH which he has had. He does not have ST elevation. He does have some apparent depression in 2, 3 and F which may be related to the LVH. Compared to previous EKGs of which there are 3 in the system none of the EKGs are the same. They all have subtle differences including tonights. Laboratory studies show a normal CBC. Chemistry significant for an increase in his kidney function to a creatinine of 1.76. May be related to the previous contrast he had on the sixth. Carbon dioxide 21. Anion gap 15. Possibly related to his seizure. Glucose a little high at 276. May be related to stress reaction. Liver function normal. Alcohol level is 0. Troponin is indeterminate at 0.1. This is a little concerning is his troponins were negative on the sixth. Discussed with hospitalist, Dr. Hunt. He was a little concerned that it might possibly be cardiac in nature, related to dysrhythmia. He asked that I speak to cardiology at [facility]. All 4 of patient's EKGs were sent to [facility]. I discussed the case with paper bag machine operator contract modeler. She was not overly concerned that this was a cardiac event. Did recommend telemetry monitoring and repeat EKGs and troponins. Recommended aspirin and ECHO in next few days. Also work up possible seizure etiology. Will place in ICU for neuro checks, repeat EKG/labs and monitoring. Medical Records Medical records reviewed: Yes I reviewed the patient's medical records. Lab Data Lab results reviewed: Yes I reviewed the patient's lab results. ECG Data Attestation: I personally reviewed and interpreted this ECG (s) as follows: Prior ECG tracings: available for review Interpretation: Normal sinus rhythm at 73. Normal intervals. Normal axis. Evidence of LVH. Minor ST depression in 2, 3 and F. HPI General Mode of arrival: EMS. Date/Time Provider Initiated Documentation: 05/07/18 01:23. Limitations to Documentation: altered mental status. Information obtained by: patient, family and old records reviewed. HPI Narrative: Patient is brought in by EMS after a seizure. Patient does not have a history of seizures. He has been living with his daughter as of late. She reports that he was sleeping out in the recliner. She haeard a crash and when she went out he was lying on the floor with his eyes rolled up in his head, snoring, tonic in nature. He was incontinent. She immediately called 911. EMS transported the patient here. He did receive Zofran in route. He did not have further seizure. He is postictal. They report a blood glucose fingerstick in the 120 range. Patient was seen here on the sixth because of chest pain. His workup included a CTA of the chest which was negative. He had 2 troponins which were negative. He was to follow-up as outpatient for stress test and he was started on labetalol which she had previously been on for high blood pressure but had been noncompliant. Patient also has a long history of headaches. He is been complaining of headache for days now. Previously worked up in October here with a negative head CT as well as a negative head and neck CTA. He denies any drug use. Daughter reports that he has cut back on his drinking since living with her which is been 8 months. Patient denies having headache currently. States previous chest pain is still present but much better than it was. Complains of some back pain. Otherwise unreliable historian. Related Data Home Medications Medication Instructions Recorded Confirmed labetalol 100 mg PO BID #60 tab 11/15/17 05/07/18 ondansetron HCl 4 mg PO Q8H #12 tab 11/15/17 05/07/18 Previous Rx's Medication Instructions Recorded labetalol 100 mg PO BID #60 tab 11/15/17 ondansetron HCl 4 mg PO Q8H #12 tab 11/15/17 Allergies Allergy/AdvReac Type Severity Reaction Status Date / Time Penicillins Allergy Severe Unverified 05/07/18 02:00 seasonal Allergy Uncoded 05/07/18 02:00 General JUAN F: 2 Review of Systems Review of Systems Unobtainable due to mental status [facility] Medical History HTN (hypertension) (Chronic) Hepatitis C (Chronic) Social History Smoking and Tabacco status: Current every day substance use type: does not use Exam Const General: other (pale, confused, clammy) Orientation: awake HENGA Head: normocephalic and atraumatic Mouth: oropharynx normal Eyes Pupils: PERRL (sluggish but reactive) EOM: EOM intact bilaterally Neck Neck: trachea midline and supple Resp Effort & Inspection: normal respiratory effort Auscultation: clear to auscultation bilaterally Cardio Rate: regular rate Heart Sounds: S1 normal and S2 normal Pulses: radial pulses present GI Inspection: normal to inspection Palpation: soft and nontender Back/Spine/Pelvis Cervical Spine: cervical ROM normal and No cervical spinal tenderness Thoracic/Lumbar Spine: thoracic and lumbar spine normal to inspection, No thoracic spinal tenderness and No lumbar spinal tenderness Skin General skin exam: other (pale, cool, clammy) Trauma: abrasion (to right flank) Neuro General: awake, not oriented x3, tone normal, no focal motor deficits and CN's II-XI intact bilaterally Sensory Exam: no sensory deficits noted Extrem General: normal to inspection, full ROM and no clubbing, cyanosis or edema
[2018-05-07 01:55] LABS: Abs Immature Grans 0.03 k/cumm (0.0-0.09); Absolute Basophil Count 0.04 k/cumm (0.0-0.2); Absolute Lymphocyte Count 4.48 k/cumm (1.2-3.4); Absolute Neutrophil Count 3.45 k/cumm (1.2-6.7); Basophils % 0.4; Eosinophils % 4.4; HCT 43.1 % (40.0-50.0); HGB 14.7 g/dL (13.5-17.5); Immature Grans % 0.3; Lymphocytes % 49.8; Mean Corp. HGB Concentration 34.1 g/dL (32.0-36.0); Mean Corpuscular Hemoglobin 31.4 pg (27.0-33.0); Mean Corpuscular Volume 92.1 fL (80-95); Monocytes % 6.7; Neutrophils % 38.4; Platelet Count 161 x1000/uL (130-400); RBC 4.68 m/cumm (4.50-6.00); RBC Distribution Width 13.6 % (11.8-14.1)
[2018-05-07] MEDS: Lactated Ringers 1,000 ML 1000 ML IV (02:02)
[2018-05-07] MEDS: Normal Saline Flush 10 ML SYR IVP (02:02)
[2018-05-07 02:08] LABS: ALT 17 U/L (12-78); AST 25 U/L (15-37); Albumin 3.1 g/dL (3.4-5.0); Alkaline Phosphatase 135 U/L (46-116); Anion Gap 15.2 mmol/L (3-11); BUN 19 mg/dL (7-18); Bilirubin, Total 0.6 mg/dL (0.2-1.0); CO2 20.8 mmol/L (21.0-32.0); CREATININE 1.76 mg/dL (0.70-1.30); Calcium 8.6 mg/dL (8.5-10.1); Chloride 105 mmol/L (98-107); Estimated GFR 41.54 (mL/min/1.73m2); Glucose 276 mg/dL (70-100); Potassium 3.6 mmol/L (3.5-5.1); Sodium 141 mmol/L (136-145); Total Protein 6.9 g/dL (6.4-8.2)
[2018-05-07 02:14] LABS: ETHANOL BLOOD < 3.0 mg/dL (<3)
--- NOTE | 2018-05-07 02:30 | DI.CT_ITS ---
SYMPTOM/DIAGNOSIS: SEIZURE CRANIAL CT (WITHOUT CONTRAST): Noncontrast. Comparison is 11/15/17. A noncontrast cranial CT was performed. The ventricular system is normal in appearance. There is no evidence of an intracranial mass lesion. There is no evidence of a subdural or epidural hematoma. No focal areas of decreased attenuation are seen. CONCLUSION: Normal noncontrast Cranial CT. CT CERVICAL SPINE: Multiple contiguous axial images of the cervical spine were obtained. Sagittal and coronal reformatted images were evaluated on the GLG's workstation. There are no priors for comparison. There is normal alignment of the cervical spine. No acute fractures or subluxations are seen. Degenerative changes are seen in the cervical spine particularly at the C3-C4 and C6-C7 levels. There is no prevertebral soft tissue swelling. The lung apices are clear. IMPRESSION: No acute fracture or subluxation in the cervical spine.
[2018-05-07] MEDS: Ondansetron 4 MG/2 ML VIAL IVP ×3 (02:59→13:46)
--- NOTE | 2018-05-07 03:27 | DI.VRAD_ITS ---
EXAM: CT Head Without Contrast EXAM DATE/TIME: 05/07/2018 1:38 AM CLINICAL HISTORY: 47 years old, male; Injury or trauma; Fall; Initial encounter; Blunt trauma (contusions or hematomas); Consciousness not specified; Injury date: 05/07/2018; Injury details: Fall S/P seizure TECHNIQUE: Axial computed tomography images of the head/brain without contrast. All CT scans at this facility use at least one of these dose optimization techniques: automated exposure control; mA and/or kV adjustment per patient size (includes targeted exams where dose is matched to clinical indication); or iterative reconstruction. Coronal and sagittal reformatted images were created and reviewed. COMPARISON: CTA BRAIN AND NECK 11/15/2017 11:11 AM FINDINGS: There is no evidence of intraparenchymal hemorrhage, mass effect or extra-axial collection. Ventricular size is normal. Visualized intraorbital soft tissues are normal. The sinuses are well-aerated. IMPRESSION: No acute intracranial process. EXAM: CT Cervical Spine Without Contrast EXAM DATE/TIME: 05/07/2018 1:38 AM CLINICAL HISTORY: 47 years old, male; Injury or trauma; Fall; Initial encounter; Blunt trauma (contusions or hematomas); Consciousness not specified; Injury date: 05/07/2018; Injury details: Fall S/P seizure TECHNIQUE: Axial computed tomography images of the cervical spine without intravenous contrast. All CT scans at this facility use at least one of these dose optimization techniques: automated exposure control; mA and/or kV adjustment per patient size (includes targeted exams where dose is matched to clinical indication); or iterative reconstruction. Coronal and sagittal reformatted images were created and reviewed. COMPARISON: CTA BRAIN AND NECK 11/15/2017 11:11 AM FINDINGS: Vertebrae: There are mild degenerative changes at the C3-4 and C6-7 disc spaces. No fracture. Normal alignment. Discs/Spinal canal/Neural foramina: No spinal stenosis. No neural foraminal narrowing. Soft tissues: There is atherosclerotic calcifications in the left carotid bulb. Lungs: Lung apices are normal. IMPRESSION: No acute findings. Mild degenerative changes. Dictated and Authenticated by: Donna Dsouza MD. Ordering:JUDY Hoyos MD
[2018-05-07] MEDS: Lactated Ringers 1,000 ML 125 ML IV (03:30)
[2018-05-07] MEDS: diphenhydrAMINE 50 MG/ML VIAL 12.5 MG IVP (04:49)
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
[2018-05-07] MEDS: Heparin 5,000 UNITS/ML VIAL 5000 UNITS SC (06:36)
[2018-05-07 07:07] LABS: HCT 47.3 % (40.0-50.0); HGB 16.2 g/dL (13.5-17.5); Mean Corp. HGB Concentration 34.2 g/dL (32.0-36.0); Mean Corpuscular Hemoglobin 31.5 pg (27.0-33.0); Mean Corpuscular Volume 91.8 fL (80-95); Mean Platelet Volume 10.9 fL (8.0-11.0); RBC 5.15 m/cumm (4.50-6.00); RBC Distribution Width 13.9 % (11.8-14.1); White Blood Cell Count 12.56 k/cumm (4.4-10.8)
[2018-05-07 07:25] LABS: ALT 146 U/L (12-78); AST 264 U/L (15-37); Albumin 2.9 g/dL (3.4-5.0); Alkaline Phosphatase 188 U/L (46-116); Anion Gap 14.1 mmol/L (3-11); BUN 22 mg/dL (7-18); Bilirubin, Total 2.2 mg/dL (0.2-1.0); CO2 23.9 mmol/L (21.0-32.0); CREATININE 2.11 mg/dL (0.70-1.30); Calcium 8.7 mg/dL (8.5-10.1); Chloride 105 mmol/L (98-107); Estimated GFR 33.69 (mL/min/1.73m2); Glucose 218 mg/dL (70-100); Potassium 3.7 mmol/L (3.5-5.1); Sodium 143 mmol/L (136-145); Total Protein 6.3 g/dL (6.4-8.2)
[2018-05-07 07:31] LABS: Hemoglobin A1C 5.1 % (4.5-6.2)
[2018-05-07 07:32] LABS: Cholesterol 102 mg/dL (50-200); HDL Cholesterol 39 mg/dL (40-60); LDL CHOLESTEROL 53 mg/dL (<100); TSH 3.01 uIU/mL (0.358-3.74); Triglyceride 43 mg/dL (30-150)
[2018-05-07 07:50] LABS: Troponin I 0.89 ng/mL (0.00-0.06)
[2018-05-07 07:58] LABS: Platelet Count 71 x1000/uL (130-400)
[2018-05-07] MEDS: Lactated Ringers 1,000 ML 150 ML IV (09:55)
[2018-05-07] MEDS: POTASSIUM CHLORIDE 20 MEQ, POTASSIUM CHLORIDE 10 MEQ 30 MEQ PO (10:03)
[2018-05-07 10:32] LABS: Lactate-non-spesis 5.5 mmol/l (0.6-1.4)
[2018-05-07 10:53] LABS: Troponin I 0.85 ng/mL (0.00-0.06)
[2018-05-07 11:51] LABS: NT-proBNP 1603 pg/mL
--- NOTE | 2018-05-07 12:20 | DSE_ITS ---
Date of service: 05/07/18 Time of Service: 12:18 DS: Diagnosis Discharge Diagnosis (1) Seizure: Status: Acute (2) Atypical chest pain: Status: Chronic (3) CKD (chronic kidney disease): Status: Chronic (4) Elevated troponin: Status: Acute (5) Drug abuse: Status: Acute Discharge Plan Disposition Patient Disposition: [facility] ([facility]) Condition: Stable Discharge Details Reason For Visit: SEIZURE WITH HYPOTENSION,ATYPICAL CHEST PAIN, Admit Date/Time: 05/07/18 04:33 Admit Provider: Luís Hunt Attending Provider: Luís Hunt Primary Care Provider: Anuel Dawn Hospital Course Hospital Course: 47-year-old man with a past medical history significant for hypertension, drug abuse in the past including heroin, potential chronic kidney disease, and ap parent medication noncompliance, being transferred to [facility] following admission here at [facility] earlier this morning. Mr. Valencia initially presented to the ED on 05/04 with complaints of atypical chest pain. Initially reported as starting 4 days prior to that, the patient reports chest tightness that did not appear to be exertional, and with a normal physical exam. Administration of nitroglycerin as well as breathing treatments in the ED resulted in no change in his symptoms. His EKG was interpreted as nonischemic, and his cardiac biomarker was checked with a troponin and negative. A CT angiogram was also obtained and without evidence of aortic dissection, aneurysm, PE, or infiltrate. Patient was discharged from the ED at that time with plans for follow-up stress test as an outpatient. Mr. Valencia presented back to the ED overnight with a reportedly observed 'seizure'. He was noted to be pale, cool, and clammy, along with an altered mental status initially attributed to a likely post-ictal state. Also with reported chest pain, as well as nausea. CT of his head and neck were checked and negative. He was however noted to be significantly hypotensive at the time of presentation, which was fluid responsive. His EKG was nonischemic, with potential evidence of LVH, as well as a minimal and equivocal initial elevation in his troponin. His CBC was entirely normal initially, and without any evidence of leukocytosis, and his CMP was checked and noteworthy for an elevated creatinine of 1.76 (patient has had values of 1.69 and 2.39 previously, but his most recent creatinine 3 days ago was 1.21), mildly low bicarb at 20, and anion gap of 15. He was also hyperglycemic with a glucose of 276. His ETOH level was checked and undetectable at less than 3. By this morning the patient has developed a mild leukocytosis with a white count of 12.5, but also with a platelet count that had dropped to 71 from 161. His creatinine is worsened to 2.11, and his LFTs are now markedly abnormal with an AST of 264 and ALT of 146. Lactate was added to his morning labs and elevated at 5.5. His troponin has also increased from the original value of 0.12 to a current value of 0.89. His BNP is also mildly elevated at 1603. While in the ICU he has remained hypotensive, with systolic values as low as 60s-70s, currently in the 90s-100s range with IV fluid resuscitation, along with mild tachycardia. Discussed Mr. Valencia's history if his 3 daughters this morning prior to his transfer to [facility]. The patient has an apparent lengthy history of alcohol and drug abuse. His mother further added by telephone that he has had cocaine abuse in the past as well, and his daughters report polysubstance abuse in general, which includes heroin. He is also had noted episodes in the past of passing out, but mostly in the setting of being under the influence of drugs and alcohol. According to his daughter whom the patient lives with he has not had much in the use of alcohol or drugs for the past several months, specifically since August 2017 when he moved in with her. Reportedly has 2 beers every 2-3 nights, and his alcohol level was undetectable at the time of presentation. She also states that the patient's brother had cardiac event not long ago, reportedly an WI, but also with a lengthy history of drug and alcohol abuse. Plan she reports that last night she had heard a loud thump, and arrived to find her father on the ground with his arms and legs curled inwards without significant shaking or other seizure type activity. There was evidence of urinary incontinence however. She also reported that he looked significantly pale. Unsure if the patient's current symptoms are cardiac or neurologic in origin. Currently he has evidence of an elevation in his BNP, elevated troponin that may be demand in nature with poor clearance due to decreased renal function but cannot rule out cardiogenic etiology. He also has evidence of acute onset thrombocytopenia, worsening LFTs, elevation in lactate, worsening acute kidney injury, continued altered mental status, and continued hypotension that appears to be responding to IV fluids for the time being. Again, unsure if the patient is not perfusing well in the setting of cardiogenic etiology vs. other. Currently afebrile and without a localized evidence of infection, although a urinalysis was not checked. Unfortunately as access to ECHO, MRI, EEG, and local consultation with neurology and cardiology is lacking over the weekend decision was made to discuss case with a tertiary center. The patient was accepted in transfer at the [facility] for further evaluation and treatment. Home Meds and New Rx's Prescriptions: No Action labetalol 100 MG tablet 100 mg PO BID Qty: 60 RF: 0 ondansetron HCl 4 MG tablet 4 mg PO Q8H Qty: 12 RF: 0 DS: Data Vitals/I&O Vitals and I&O: Vital Signs Temperature 37.2 C 05/07/18 08:38 Temperature Source Temporal Artery Scan 05/07/18 08:38 Pulse 119 H 05/07/18 11:46 Pulse 109 H 05/07/18 11:46 Respiratory Rate 18 05/07/18 11:46 Respiratory Effort 05/07/18 08:38 Respiratory Depth Normal 05/07/18 08:38 Respiratory Pattern Tachypnea 05/07/18 08:38 Blood Pressure 114/82 05/07/18 11:46 Blood Pressure Mean 89 05/07/18 11:46 Blood Pressure Position Supine 05/07/18 05:50 Pulse Oximetry 98 05/07/18 11:40 Oxygen Delivery Method Room Air 05/07/18 05:50 Oxygen Flow Rate 0 05/07/18 05:50 Pain Level 0 05/07/18 08:38 Intake & Output 05/06/18 05/07/18 05/07/18 23:59 11:59 23:59 Intake Total 1900.0 / 1900.0 Balance 1900.0 / 1900.0 Weight 75.7 kg Intake: IV 1900.0 / 1900.0 Other: Comment HNV Completed studies during hospitalization [Text1]: EXAM: CT Head Without Contrast EXAM DATE/TIME: 05/07/2018 1:38 AM CLINICAL HISTORY: 47 years old, male; Injury or trauma; Fall; Initial encounter; Blunt trauma (contusions or hematomas); Consciousness not specified; Injury date: 05/07/2018; Injury details: Fall S/P seizure TECHNIQUE: Axial computed tomography images of the head/brain without contrast. All CT scans at this facility use at least one of these dose optimization techniques: automated exposure control; mA and/or kV adjustment per patient size (includes targeted exams where dose is matched to clinical indication); or iterative reconstruction. Coronal and sagittal reformatted images were created and reviewed. COMPARISON: CTA BRAIN AND NECK 11/15/2017 11:11 AM FINDINGS: There is no evidence of intraparenchymal hemorrhage, mass effect or extra-axial collection. Ventricular size is normal. Visualized intraorbital soft tissues are normal. The sinuses are well-aerated. IMPRESSION: No acute intracranial process. Exam(s) 05/04/[address]:CT chest PE CTA SYMPTOM/DIAGNOSIS: CENTRAL PLEURITIC CHEST PAIN, SOB, ? PE PE CHEST CT: CT angiography was performed with multi slice acquisition and multi planar and 3D reconstruction. There are no prior comparison exams. Pulmonary arteries are well opacified with IV contrast. No pulmonary emboli are seen. There is mild dilatation of the ascending aorta to 3.9 cm. There is no evidence of dissection. The heart size is normal. The lungs appear clear. No infiltrate or effusion is seen. The visualized portions of the upper abdomen are unremarkable. There is no evidence of pneumothorax or rib fracture. IMPRESSION: No evidence of pulmonary emboli or other acute abnormality. Labs on day of discharge: Labs from last 24 hours 05/07/18 05/07/18 05/07/18 14:00 10:20 10:20 WBC RBC Hgb Hct MCV MCH MCHC RDW Plt Count MPV Immature Gran % Neutrophils % Lymphocytes % Monocytes % Eosinophils % Basophils % Absolute Neutrophils Absolute Lymphocytes Absolute Monocytes Absolute Eosinophils Absolute Basophils Sodium Potassium Chloride Carbon Dioxide Anion Gap BUN Creatinine Estimated GFR/1.73 m2 Glucose Hemoglobin A1c Lactate Calcium Magnesium Total Bilirubin AST ALT Alkaline Phosphatase Troponin I Pending 0.85 H NT-Pro-B Natriuret Pep 1603 H Total Protein Albumin Triglycerides Total Cholesterol LDL Cholesterol Direct HDL Cholesterol TSH Ethyl Alcohol Hepatitis C Antibody HIV 1&2 Ag/Ab, 4th Gen 05/07/18 05/07/18 05/07/18 10:20 08:45 06:30 WBC RBC Hgb Hct MCV MCH MCHC RDW Plt Count MPV Immature Gran % Neutrophils % Lymphocytes % Monocytes % Eosinophils % Basophils % Absolute Neutrophils Absolute Lymphocytes Absolute Monocytes Absolute Eosinophils Absolute Basophils Sodium Potassium Chloride Carbon Dioxide Anion Gap BUN Creatinine Estimated GFR/1.73 m2 Glucose Hemoglobin A1c Lactate 5.5 H Calcium Magnesium Total Bilirubin AST ALT Alkaline Phosphatase Troponin I Cancelled NT-Pro-B Natriuret Pep Total Protein Albumin Triglycerides Total Cholesterol LDL Cholesterol Direct HDL Cholesterol TSH Ethyl Alcohol Hepatitis C Antibody Pending HIV 1&2 Ag/Ab, 4th Gen 05/07/18 05/07/18 05/07/18 06:30 06:30 06:30 WBC 12.56 H D RBC 5.15 Hgb 16.2 Hct 47.3 MCV 91.8 MCH 31.5 MCHC 34.2 RDW 13.9 Plt Count 71 L D MPV 10.9 Immature Gran % Neutrophils % Lymphocytes % Monocytes % Eosinophils % Basophils % Absolute Neutrophils Absolute Lymphocytes Absolute Monocytes Absolute Eosinophils Absolute Basophils Sodium Potassium Chloride Carbon Dioxide Anion Gap BUN Creatinine Estimated GFR/1.73 m2 Glucose Hemoglobin A1c 5.1 Lactate Calcium Magnesium Total Bilirubin AST ALT Alkaline Phosphatase Troponin I NT-Pro-B Natriuret Pep Total Protein Albumin Triglycerides Total Cholesterol LDL Cholesterol Direct HDL Cholesterol TSH Ethyl Alcohol Hepatitis C Antibody HIV 1&2 Ag/Ab, 4th Gen Pending 05/07/18 05/07/18 05/07/18 06:30 06:30 01:45 WBC RBC Hgb Hct MCV MCH MCHC RDW Plt Count MPV Immature Gran % Neutrophils % Lymphocytes % Monocytes % Eosinophils % Basophils % Absolute Neutrophils Absolute Lymphocytes Absolute Monocytes Absolute Eosinophils Absolute Basophils Sodium 143 Potassium 3.7 Chloride 105 Carbon Dioxide 23.9 Anion Gap 14.1 H BUN 22 H Creatinine 2.11 H Estimated GFR/1.73 m2 33.69 Glucose 218 H Hemoglobin A1c Lactate Calcium 8.7 Magnesium Total Bilirubin 2.2 H AST 264 H ALT 146 H Alkaline Phosphatase 188 H Troponin I 0.89 H 0.10 H NT-Pro-B Natriuret Pep Total Protein 6.3 L Albumin 2.9 L Triglycerides 43 Total Cholesterol 102 LDL Cholesterol Direct 53 HDL Cholesterol 39 L TSH 3.01 Ethyl Alcohol Hepatitis C Antibody HIV 1&2 Ag/Ab, 4th Gen 05/07/18 05/07/18 01:45 01:45 WBC 9.00 RBC 4.68 Hgb 14.7 Hct 43.1 MCV 92.1 MCH 31.4 MCHC 34.1 RDW 13.6 Plt Count 161 MPV 11.0 Immature Gran % 0.3 Neutrophils % 38.4 Lymphocytes % 49.8 Monocytes % 6.7 Eosinophils % 4.4 Basophils % 0.4 Absolute Neutrophils 3.45 Absolute Lymphocytes 4.48 H Absolute Monocytes 0.60 Absolute Eosinophils 0.40 Absolute Basophils 0.04 Sodium 141 Potassium 3.6 Chloride 105 Carbon Dioxide 20.8 L Anion Gap 15.2 H BUN 19 H Creatinine 1.76 H Estimated GFR/1.73 m2 41.54 Glucose 276 H D Hemoglobin A1c Lactate Calcium 8.6 Magnesium 2.0 Total Bilirubin 0.6 AST 25 ALT 17 Alkaline Phosphatase 135 H Troponin I NT-Pro-B Natriuret Pep Total Protein 6.9 Albumin 3.1 L Triglycerides Total Cholesterol LDL Cholesterol Direct HDL Cholesterol TSH Ethyl Alcohol < 3.0 Hepatitis C Antibody HIV 1&2 Ag/Ab, 4th Gen FORMERLY [facility] Medical History Closed left hand fracture (Resolved) HTN (hypertension) (Chronic) Hepatitis C (Chronic) Social History caregiver/support person: Yes household members: children lives independently: No (Lives with daughter for the last 8 months) current occupational status: unemployed Smoking and Tabacco status: Current every day alcohol intake: current alcohol intake frequency: 0-2 drinks per day Alcohol type: beer substance use type: does not use, former substance user Date of last use: Clean from heroin for months and heroin
[2018-05-07 14:39] LABS: Troponin I 1.08 ng/mL (0.00-0.06)
--- NOTE | 2018-05-07 14:42 | NUR.NOTE ---
Transport delay due to rn occupational health diversion. Family made aware and became concerned with extended time. States they are ready to unplug him and take him themselves. Requesting he be flown. Dr. Corado and in house counsel made aware. [employer] states someone is on their way up. Family made aware and during up date patient was removing one seizure pad from upper rail while one visitor was attempting to put it back on. Informed that she could leave it off for now as it was for seizure precautions but he hasn't had any seizure activity thus far. Visitor then tossed seizure pad into corner of the room stating, This is a joke and illicited laughter from the other visitors present. Nursing Note:
[2018-05-09 11:18] LABS: Hepatitis C Ab w Rflx HCV PCR Reactive (NEGAT)
[2018-05-09 11:20] LABS: HIV-1/2 Ag & Ab Screen Negative (NEGAT)
[2018-05-12 11:41] LABS: HCV RNA Detection Quantitative 301 IU/mL (UNDECT)
== END 2018-05-07 15:15 | disposition short-term general hospital (02) | DRG 101 ==
LOC: ER 04:42 → ICU 05:49
PROVIDERS: Admitting Provider Family Medicine; Emergency Provider Emergency Medicine; PCP Nurse Practitioner Family; Visit Provider Internal Medicine
DX: R56.9 Unspecified convulsions (principal); R07.89 Other chest pain; I12.9 Hypertensive chronic kidney disease with stage 1 through stage 4 chronic kidney disease, or unspecified chronic kidney disease; I95.9 Hypotension, unspecified; R74.8 Abnormal levels of other serum enzymes; R41.82 Altered mental status, unspecified; R11.0 Nausea; R73.9 Hyperglycemia, unspecified; D72.829 Elevated white blood cell count, unspecified; R00.0 Tachycardia, unspecified; N18.9 Chronic kidney disease, unspecified; F19.11 Other psychoactive substance abuse, in remission; F10.11 Alcohol abuse, in remission; F17.210 Nicotine dependence, cigarettes, uncomplicated
CPT/HCPCS: 36415; 80053; 80061; 83721; 85027; 86803; 87389; 93005; 96361; 96374; 96375; 99223; 99239; 99285; 70450; 72125; 80320; 83036; 83605; 83735; 83880; 84443; 84484; 85025; 87522; 93010; J1200; J1644; J2405